=== PATIENT | male | born 1960 | race Caucasian/White ===

== ENCOUNTER 2017-12-19 21:15 | Inpatient (IN) | payer BC ==
[~2017-12-19] VITALS: Ht 185.4 cm; Wt 124.5 kg
[~2017-12-19 21:15] MED LIST: NAPR-56 PO; VAL5T PO
[2017-12-19 23:01] LABS: BASOPHILS # (AUTO) 0.1 X10'3 (0-0.2); BASOPHILS % (AUTO) 0.8 % (0-1); EOSINOPHILS # (AUTO) 0.3 X10'3 (0-0.9); EOSINOPHILS % (AUTO) 2.8 % (0-6); HEMATOCRIT 49.5 % (42.0-52.0); HEMOGLOBIN 16.7 g/dl (14.0-17.9); LYMPHOCYTES # (AUTO) 1.6 X10'3 (1.1-4.8); LYMPHOCYTES % (AUTO) 15.5 % (21-51); MEAN CORPUSCULAR HEMOGLOBIN 29.8 PG (27.0-31.0); MEAN CORPUSCULAR HGB CONC 33.7 % (33.0-36.5); MEAN CORPUSCULAR VOLUME 88.4 FL (78-98); MEAN PLATELET VOLUME 8.9 FL (7.4-10.4); MONOCYTES # (AUTO) 0.5 X10'3 (0-0.9); MONOCYTES % (AUTO) 4.6 % (2-12); NEUTROPHILS # (AUTO) 7.9 X10'3 (1.8-7.7); NEUTROPHILS % (AUTO) 76.3 % (42-75); PLATELET COUNT 258 X10'3 (140-440); RED CELL DISTRIBUTION WIDTH 13.2 % (11.5-14.5); WHITE BLOOD COUNT 10.3 X10'3 (4.5-11.0)
[2017-12-19 23:11] LABS: PARTIAL THROMBOPLASTIN TIME 26 SECONDS (22-32); PROTHROMBIN TIME 10.1 SECONDS (9.0-12.0)
[2017-12-19 23:17] LABS: ALANINE AMINOTRANSFERASE 59 U/L (12-78); ALBUMIN 4.1 G/DL (3.4-5.0); ALBUMIN/GLOBULIN RATIO 1.1 (1.1-1.5); ALKALINE PHOSPHATASE 90 IU/L (46-116); ANION GAP 9 (8-16); ASPARTATE AMINO TRANSFERASE 22 U/L (10-37); BILIRUBIN,TOTAL 0.5 MG/DL (0.1-1.0); BLOOD UREA NITROGEN 12 MG/DL (7-18); BUN/CREATININE RATIO 10.4 (5.4-32.0); CHLORIDE 103 MMOL/L (99-107); CREATININE 1.15 MG/DL (0.60-1.10); GLUCOSE 123 MG/DL (70-104); POTASSIUM 3.9 MMOL/L (3.5-5.1); SODIUM 143 MMOL/L (135-145); TOTAL CARBON DIOXIDE 30.6 MMOL/L (24-32); TOTAL PROTEIN 7.8 G/DL (6.4-8.2); TROPONIN I < 0.04 NG/ML (0.0-0.05); eGFR 66 ML/MIN
[2017-12-20] MEDS ORDERED: lisinopril 10 MG tablet PO ONE (00:15)
[2017-12-20] MEDS ORDERED: aspirin 81mg tab.chew PO ONE (01:15)
[2017-12-20] MEDS ORDERED: NEBI5TAB10 PO (01:45)
[2017-12-20] MEDS ORDERED: PANT40TA4 PO (01:45)
[2017-12-20] MEDS ORDERED: LEVO200T8 PO (01:49)
[2017-12-20] MEDS ORDERED: SULF1TAB48 PO (01:49)
[2017-12-20] MEDS ORDERED: METO-292 PO (01:49)
[2017-12-20] MEDS ORDERED: mag hydrox/Alum hydrox/simeth 30ml oral suspension PO PRN (02:15)
[2017-12-20] MEDS ORDERED: acetaminophen 325mg tablet PO PRN ×2 (02:15)
[2017-12-20] MEDS ORDERED: ondansetron/PF 4mg/2ml inj IV PRN (02:15)
[2017-12-20] MEDS ORDERED: magnesium hydroxide 30ml (MOM) UD suspension PO PRN (02:15)
[2017-12-20 06:30] LABS: CHOL/HDL RATIO 9.5 (0.00-4.99); CHOLESTEROL 286 MG/DL (0-200); HDL CHOLESTEROL 30 MG/DL (35-60); LDL CHOLESTEROL 208 MG/DL (50-100); TRIGLYCERIDES 241 MG/DL (20-135)
[2017-12-20 08:50] VITALS: BP 180/108
[2017-12-20] MEDS: sulfamethoxazole/trimethoprim DS (800/160mg) tablet PO SCH (09:17)
[2017-12-20] MEDS: aspirin 325mg tablet PO SCH (09:19)
[2017-12-20] MEDS: pantoprazole 40mg Tablet.DR PO SCH ×2 (09:19→17:55)
[2017-12-20] MEDS: levoTHYROXINE 100mcg tablet PO SCH (09:19)
[2017-12-20] MEDS ORDERED: LORazepam 2 mg/ml vial IM ONE (11:30)
[2017-12-20 15:48] VITALS: BP 165/91
[2017-12-20 18:00] VITALS: BP 160/98
[2017-12-20 22:00] VITALS: BP 165/87
[2017-12-21 02:00] VITALS: BP 123/77
[2017-12-21 05:26] LABS: BASOPHILS % (AUTO) 0.6 % (0-1); EOSINOPHILS # (AUTO) 0.3 X10'3 (0-0.9); EOSINOPHILS % (AUTO) 3.6 % (0-6); HEMOGLOBIN 15.6 g/dl (14.0-17.9); LYMPHOCYTES # (AUTO) 2.2 X10'3 (1.1-4.8); LYMPHOCYTES % (AUTO) 28.4 % (21-51); MEAN CORPUSCULAR HEMOGLOBIN 29.9 PG (27.0-31.0); MEAN PLATELET VOLUME 8.8 FL (7.4-10.4); MONOCYTES # (AUTO) 0.5 X10'3 (0-0.9); MONOCYTES % (AUTO) 6.5 % (2-12); NEUTROPHILS # (AUTO) 4.7 X10'3 (1.8-7.7); NEUTROPHILS % (AUTO) 60.9 % (42-75); PLATELET COUNT 228 X10'3 (140-440); RED BLOOD COUNT 5.23 X10'6 (4.70-6.10); RED CELL DISTRIBUTION WIDTH 13.5 % (11.5-14.5); WHITE BLOOD COUNT 7.8 X10'3 (4.5-11.0)
[2017-12-21 05:43] LABS: ALBUMIN 3.3 G/DL (3.4-5.0); ANION GAP 9 (8-16); BLOOD UREA NITROGEN 12 MG/DL (7-18); BUN/CREATININE RATIO 11.3 (5.4-32.0); CALCIUM 8.3 MG/DL (8.5-10.1); CHLORIDE 103 MMOL/L (99-107); CREATININE 1.06 MG/DL (0.60-1.10); GLUCOSE 106 MG/DL (70-104); POTASSIUM 3.8 MMOL/L (3.5-5.1); SODIUM 139 MMOL/L (135-145); TOTAL CARBON DIOXIDE 27.2 MMOL/L (24-32); eGFR 73 ML/MIN
[2017-12-21 07:15] VITALS: BP 177/100
[2017-12-21] MEDS: pantoprazole 40mg Tablet.DR PO SCH (07:27)
[2017-12-21] MEDS: levoTHYROXINE 100mcg tablet PO SCH (07:27)
[2017-12-21 08:10] VITALS: BP 159/103
[2017-12-21] MEDS: aspirin 325mg tablet PO SCH (08:10)
[2017-12-21] MEDS: sulfamethoxazole/trimethoprim DS (800/160mg) tablet PO SCH (08:11)
[2017-12-21] MEDS ORDERED: LORazepam 2 mg/ml vial IM ONE (09:35)
[2017-12-21 10:00] VITALS: BP 159/107
[2017-12-21] MEDS ORDERED: lactobacillus rhamnosus 10,000 MMU CELLS/CAPSULE PO SCH (20:00)
== END 2017-12-21 14:30 | disposition home or self-care (01) | DRG 69 ==
LOC: ER 21:16 → ED HOLD 12-20 02:13 → EDBEDREQ 12-20 07:22 → ORTHO 4S 12-20 08:45
PROVIDERS: ADMIT Internal Medicine; ATTEND Internal Medicine
PROC: BW38YZZ Magnetic Resonance Imaging (MRI) of Head using Other Contrast (ICD-10-PCS; principal; 2017-12-21)
DX: G45.9 Transient cerebral ischemic attack, unspecified (principal); C85.90 Non-Hodgkin lymphoma, unspecified, unspecified site; E03.9 Hypothyroidism, unspecified; I10 Essential (primary) hypertension; G93.9 Disorder of brain, unspecified; K21.9 Gastro-esophageal reflux disease without esophagitis; L71.9 Rosacea, unspecified; E66.9 Obesity, unspecified; F41.9 Anxiety disorder, unspecified; Z79.82 Long term (current) use of aspirin; Z68.36 Body mass index [BMI] 36.0-36.9, adult; Z88.5 Allergy status to narcotic agent
CPT/HCPCS: 36415; 70450; 70551; 70552; 71045; 80048; 80053; 80061; 84443; 84484; 85025; 85610; 85730; 87070; 93005; 93306; 93880; 97116; 97161; 97530; 99285; J2060

== ENCOUNTER 2019-12-07 20:46 | Emergency (ER) | payer BC ==
[~2019-12-07] VITALS: Ht 185.4 cm; Wt 120.0 kg
[~2019-12-07 20:46] MED LIST changes: +LEVO200T8 PO; +METO-292 PO; -NAPR-56 PO; +NEBI5TAB10 PO; +PANT40TA4 PO; +SULF1TAB48 PO; -VAL5T PO
[2019-12-07] MEDS ORDERED: AMOX-422 PO (21:04)
[2019-12-07] MEDS ORDERED: amox tr/potassium clavulanate 875/125mg TAB PO ONE (21:05)
--- NOTE | 2019-12-07 21:39 | NUR ---
BP 192/100 AT TIME OF DC. HEATH RIOS, AWARE AND OK WITH DC. PT HAS HAD RECENT CARDIAC WORKUP AND REPORTS "IM WORKING ON MY BP CURRENTLY" WITH PCP.
[2019-12-07 21:40] VITALS: BP 192/100
== END 2019-12-07 21:41 | disposition home or self-care (01) ==
LOC: ER 20:46
DX: H60.92 Unspecified otitis externa, left ear (principal); I10 Essential (primary) hypertension; Z88.5 Allergy status to narcotic agent; Z88.8 Allergy status to other drugs, medicaments and biological substances; Z79.899 Other long term (current) drug therapy
CPT/HCPCS: 99283

== ENCOUNTER 2023-12-01 14:03 | Inpatient (IN) | payer BC ==
[~2023-12-01] VITALS: Ht 182.9 cm; Wt 140.9 kg
[~2023-12-01 14:03] MED LIST changes: -PANT40TA4 PO; +PANT40TA54 PO
[2023-12-01 14:41] LABS: BASOPHILS # (AUTO) 0.1 X10'3 (0-0.2); BASOPHILS % (AUTO) 0.9 % (0-1); EOSINOPHILS # (AUTO) 0.2 X10'3 (0-0.9); EOSINOPHILS % (AUTO) 1.5 % (0-6); HEMATOCRIT 48.3 % (42.0-52.0); LYMPHOCYTES # (AUTO) 3.3 X10'3 (1.1-4.8); LYMPHOCYTES % (AUTO) 28.5 % (21-51); MEAN CORPUSCULAR HEMOGLOBIN 28.7 PG (27.0-31.0); MEAN CORPUSCULAR VOLUME 86.9 FL (78-98); MEAN PLATELET VOLUME 9.3 FL (7.4-10.4); MONOCYTES # (AUTO) 0.7 X10'3 (0-0.9); MONOCYTES % (AUTO) 6.1 % (2-12); NEUTROPHILS # (AUTO) 7.2 X10'3 (1.8-7.7); PLATELET COUNT 250 X10'3 (140-440); RED BLOOD COUNT 5.56 X10'6 (4.70-6.10); RED CELL DISTRIBUTION WIDTH 14.6 % (11.5-14.5); WHITE BLOOD COUNT 11.4 X10'3 (4.5-11.0)
[2023-12-01] MEDS: normal saline 1000ml 1,000 ML IV ONE ×2 (14:46→15:32)
[2023-12-01] MEDS: ondansetron/PF 4mg/2ml inj IV ONE ×2 (14:46→20:22)
[2023-12-01 15:09] LABS: ALANINE AMINOTRANSFERASE 77 U/L (12-78); ALBUMIN 3.8 G/DL (3.4-5.0); ALKALINE PHOSPHATASE 72 IU/L (46-116); ANION GAP 13 (8-16); ASPARTATE AMINO TRANSFERASE 27 U/L (10-37); BILIRUBIN,TOTAL 0.7 MG/DL (0.1-1.0); BLOOD UREA NITROGEN 13 MG/DL (7-18); BUN/CREATININE RATIO 11.4 (10.0-20.0); CHLORIDE 100 MMOL/L (99-107); CREATININE 1.14 MG/DL (0.60-1.10); GLUCOSE 137 MG/DL (70-104); POTASSIUM 3.2 MMOL/L (3.5-5.1); SODIUM 138 MMOL/L (135-145); TOTAL CARBON DIOXIDE 24.9 MMOL/L (24-32); TOTAL PROTEIN 7.8 G/DL (6.4-8.2); eCRCL 76 ML/MIN; eGFR 66 ML/MIN
[2023-12-01 15:11] LABS: ETHANOL < 10 MG/DL (<10); MAGNESIUM 2.1 MG/DL (1.5-2.4)
[2023-12-01] MEDS: hydrALAZINE 20mg/ml inj. IV ONE ×3 (15:32→22:34)
[2023-12-01] MEDS: metoclopramide 5 mg/ml inj IV ONE (15:33)
[2023-12-01 16:08] LABS: PRO BRAIN NATRIURETIC PEPTIDE 272 PG/ML (0-125)
[2023-12-01] MEDS: meclizine 12.5mg tablet PO ONE ×2 (16:26→17:38)
[2023-12-01] MEDS: potassium Cl 20 mEq SR tablet PO STA (16:27)
[2023-12-01 17:09] LABS: BILIRUBIN,URINE NEGATIVE (Neg); CLARITY,URINE CLEAR (Clear); COLOR,URINE YELLOW (Yellow); GLUCOSE, URINE NEGATIVE (Neg); KETONES,URINE 15 mg/dl (Neg); LEUKOCYTE ESTERASE ,URINE NEGATIVE (Neg); NITRITES, URINE NEGATIVE (Neg); OCCULT BLOOD,URINE NEGATIVE (Neg); PH,URINE 7.5 (4.8-8.0); PROTEIN,URINE 100 mg/dl (Neg); UROBILINOGEN,URINE 0.2 E.U/dL (0.2-1.0)
[2023-12-01 17:11] LABS: URINE AMPHETAMINE SCREEN NEGATIVE (Neg); URINE BARBITUATE SCREEN NEGATIVE (Neg); URINE BENZODIAZEPINES SCREEN NEGATIVE (Neg); URINE CANNABINOID SCREEN NEGATIVE (Neg); URINE COCAINE SCREEN NEGATIVE (Neg); URINE METHADONE SCREEN NEGATIVE (Neg); URINE OPIATE SCREEN NEGATIVE (Neg); URINE PHENCYCLIDINE SCREEN NEGATIVE (Neg)
[2023-12-01 17:22] LABS: BACTERIA,URINE NONE SEEN /HPF (Neg); MUCUS STRANDS FEW /LPF (Neg); RBC,URINE 0-2 /HPF (0-2); SQUAMOUS EPITHELIAL CELL,UR FEW /LPF (FEW); UA COLLECTION TYPE CLN CATCH MIDSTREAM; WBC,URINE 0-4 /HPF (0-4)
[2023-12-01] MEDS: cloNIDine 0.1 mg tablet PO ONE (17:38)
[2023-12-01] MEDS: normal saline 1000ML IV soln IVB ONE (17:43)
[2023-12-02] VITALS (7 sets, daily range): BP systolic 170–194; BP diastolic 83–101; PULSE 55–69; RESP 18–20; TEMP 97.5–98.4; O2SAT 95–98
[2023-12-02] MEDS ORDERED: acetaminophen 325mg tablet PO PRN ×2 (00:25)
[2023-12-02] MEDS ORDERED: morphine 2 MG/ML inj. syringe IV PRN (00:25)
[2023-12-02] MEDS ORDERED: magnesium hydroxide 30ml (MOM) UD suspension PO PRN (00:25)
[2023-12-02] MEDS ORDERED: mag hydrox/Alum hydrox/simeth 30ml oral suspension PO PRN (00:25)
[2023-12-02] MEDS ORDERED: HYDROcodone/acetaminophen 5mg/325mg tablet PO PRN (00:25)
[2023-12-02 01:32] LABS: HEMOGLOBIN A1C 6.4 % (4.5-6.2)
[2023-12-02] MEDS: normal saline 1000ml 1,000 ML IV SCH (03:39)
[2023-12-02] MEDS: aspirin 81mg, enteric-coated 1 TAB TABLET.DR PO SCH (08:00)
[2023-12-02] MEDS: docusate sod 100mg capsule PO SCH (08:00)
[2023-12-02 10:44] LABS: BASOPHILS # (AUTO) 0.1 X10'3 (0-0.2); BASOPHILS % (AUTO) 0.4 % (0-1); EOSINOPHILS % (AUTO) 0.2 % (0-6); HEMATOCRIT 45.5 % (42.0-52.0); LYMPHOCYTES # (AUTO) 1.6 X10'3 (1.1-4.8); LYMPHOCYTES % (AUTO) 9.6 % (21-51); MEAN CORPUSCULAR HEMOGLOBIN 28.9 PG (27.0-31.0); MEAN CORPUSCULAR VOLUME 87.6 FL (78-98); MEAN PLATELET VOLUME 9.2 FL (7.4-10.4); MONOCYTES # (AUTO) 0.9 X10'3 (0-0.9); NEUTROPHILS # (AUTO) 14.3 X10'3 (1.8-7.7); NEUTROPHILS % (AUTO) 84.8 % (42-75); PLATELET COUNT 232 X10'3 (140-440); RED BLOOD COUNT 5.19 X10'6 (4.70-6.10); RED CELL DISTRIBUTION WIDTH 14.6 % (11.5-14.5); WHITE BLOOD COUNT 16.9 X10'3 (4.5-11.0)
[2023-12-02] MEDS ORDERED: ASPI-611 PO (11:02)
[2023-12-02] MEDS ORDERED: FURO-150 PO (11:02)
[2023-12-02 11:19] LABS: ALANINE AMINOTRANSFERASE 67 U/L (12-78); ALBUMIN 3.4 G/DL (3.4-5.0); ALBUMIN/GLOBULIN RATIO 0.9 (1.1-1.5); ALKALINE PHOSPHATASE 65 IU/L (46-116); ANION GAP 14 (8-16); ASPARTATE AMINO TRANSFERASE 26 U/L (10-37); BILIRUBIN,TOTAL 0.7 MG/DL (0.1-1.0); BLOOD UREA NITROGEN 14 MG/DL (7-18); BUN/CREATININE RATIO 11.5 (10.0-20.0); CALCIUM 8.4 MG/DL (8.5-10.1); CHLORIDE 102 MMOL/L (99-107); CHOL/HDL RATIO 7.3 (0.00-4.99); CHOLESTEROL 262 MG/DL (0-200); CREATININE 1.22 MG/DL (0.60-1.10); GLUCOSE 145 MG/DL (70-104); HDL CHOLESTEROL 36 MG/DL (35-60); LDL CHOLESTEROL 199 MG/DL (50-100); POTASSIUM 3.6 MMOL/L (3.5-5.1); SODIUM 138 MMOL/L (135-145); THYROID STIMULATING HORMONE 3.08 ulU/ml (0.34-4.50); TOTAL CARBON DIOXIDE 22.2 MMOL/L (24-32); TOTAL PROTEIN 7.3 G/DL (6.4-8.2); TRIGLYCERIDES 120 MG/DL (20-135); eCRCL 71 ML/MIN; eGFR 61 ML/MIN
[2023-12-02] MEDS: ondansetron/PF 4mg/2ml inj IV PRN (17:03)
[2023-12-02] MEDS: proCHLORperazine 10 MG/2 ml inj IV PRN (17:07)
[2023-12-02] MEDS: meclizine 12.5mg tablet PO PRN (19:33)
[2023-12-03 02:00] VITALS: BP 182/91; PULSE 49; RESP 15; TEMP 98; O2SAT 99
[2023-12-03 06:00] VITALS: BP 199/99; PULSE 54; RESP 19; TEMP 97.8; O2SAT 99
[2023-12-03 07:25] LABS: BASOPHILS # (AUTO) 0.1 X10'3 (0-0.2); BASOPHILS % (AUTO) 0.5 % (0-1); EOSINOPHILS # (AUTO) 0.1 X10'3 (0-0.9); EOSINOPHILS % (AUTO) 0.9 % (0-6); HEMATOCRIT 46.6 % (42.0-52.0); HEMOGLOBIN 15.4 g/dl (14.0-17.9); LYMPHOCYTES % (AUTO) 18.1 % (21-51); MEAN CORPUSCULAR HGB CONC 33.1 g/dL (33.0-36.5); MEAN CORPUSCULAR VOLUME 87.8 FL (78-98); MEAN PLATELET VOLUME 9.7 FL (7.4-10.4); MONOCYTES # (AUTO) 0.6 X10'3 (0-0.9); MONOCYTES % (AUTO) 5.3 % (2-12); NEUTROPHILS # (AUTO) 8.1 X10'3 (1.8-7.7); NEUTROPHILS % (AUTO) 75.2 % (42-75); PLATELET COUNT 201 X10'3 (140-440); RED BLOOD COUNT 5.31 X10'6 (4.70-6.10); RED CELL DISTRIBUTION WIDTH 14.8 % (11.5-14.5); WHITE BLOOD COUNT 10.8 X10'3 (4.5-11.0)
[2023-12-03 07:42] LABS: ALBUMIN 3.2 G/DL (3.4-5.0); ANION GAP 8 (8-16); BLOOD UREA NITROGEN 14 MG/DL (7-18); BUN/CREATININE RATIO 16.5 (10.0-20.0); CHLORIDE 103 MMOL/L (99-107); CHOL/HDL RATIO 6.9 (0.00-4.99); CHOLESTEROL 248 MG/DL (0-200); CREATININE 0.85 MG/DL (0.60-1.10); GLUCOSE 99 MG/DL (70-104); HDL CHOLESTEROL 36 MG/DL (35-60); LDL CHOLESTEROL 198 MG/DL (50-100); POTASSIUM 3.7 MMOL/L (3.5-5.1); SODIUM 136 MMOL/L (135-145); TOTAL CARBON DIOXIDE 24.9 MMOL/L (24-32); TRIGLYCERIDES 115 MG/DL (20-135); eCRCL 101 ML/MIN; eGFR > 90 ML/MIN
[2023-12-03] MEDS: atorvastatin 20mg tablet PO SCH (08:20)
[2023-12-03 15:00] VITALS: BP 211/100; PULSE 64; RESP 18; TEMP 97.9; O2SAT 98
[2023-12-03] MEDS: LORazepam 2 mg/ml vial IV PRN (15:50)
[2023-12-03 18:00] VITALS: BP 217/100; PULSE 56; RESP 16; TEMP 98; O2SAT 98
[2023-12-03 20:00] VITALS: RESP 16; O2SAT 98
[2023-12-03] MEDS ORDERED: ATOR-2 PO (20:02)
[2023-12-03 22:00] VITALS: BP 170/65; PULSE 54; RESP 16; TEMP 97.9; O2SAT 97
[2023-12-04] VITALS (12 sets, daily range): BP systolic 130–235; BP diastolic 65–119; PULSE 53–63; RESP 14–22; TEMP 97.5–98.1; O2SAT 96–98
[2023-12-04 06:21] LABS: BASOPHILS # (AUTO) 0.1 X10'3 (0-0.2); BASOPHILS % (AUTO) 1.1 % (0-1); EOSINOPHILS # (AUTO) 0.3 X10'3 (0-0.9); EOSINOPHILS % (AUTO) 3.6 % (0-6); HEMATOCRIT 45.3 % (42.0-52.0); HEMOGLOBIN 15.1 g/dl (14.0-17.9); LYMPHOCYTES # (AUTO) 2.2 X10'3 (1.1-4.8); LYMPHOCYTES % (AUTO) 24.6 % (21-51); MEAN CORPUSCULAR HEMOGLOBIN 29.1 PG (27.0-31.0); MEAN CORPUSCULAR HGB CONC 33.3 g/dL (33.0-36.5); MEAN CORPUSCULAR VOLUME 87.4 FL (78-98); MEAN PLATELET VOLUME 9.1 FL (7.4-10.4); MONOCYTES # (AUTO) 0.7 X10'3 (0-0.9); MONOCYTES % (AUTO) 7.3 % (2-12); NEUTROPHILS # (AUTO) 5.7 X10'3 (1.8-7.7); NEUTROPHILS % (AUTO) 63.4 % (42-75); PLATELET COUNT 202 X10'3 (140-440); RED BLOOD COUNT 5.18 X10'6 (4.70-6.10); RED CELL DISTRIBUTION WIDTH 14.5 % (11.5-14.5)
[2023-12-04 06:40] LABS: ALBUMIN 3.1 G/DL (3.4-5.0); ANION GAP 10 (8-16); BLOOD UREA NITROGEN 16 MG/DL (7-18); BUN/CREATININE RATIO 15.4 (10.0-20.0); CALCIUM 8.3 MG/DL (8.5-10.1); CHLORIDE 106 MMOL/L (99-107); CREATININE 1.04 MG/DL (0.60-1.10); GLUCOSE 94 MG/DL (70-104); POTASSIUM 3.8 MMOL/L (3.5-5.1); SODIUM 141 MMOL/L (135-145); TOTAL CARBON DIOXIDE 24.8 MMOL/L (24-32); eCRCL 83 ML/MIN; eGFR 73 ML/MIN
[2023-12-04] MEDS: furosemide 20MG tablet PO ONE (16:35)
[2023-12-04] MEDS: NIFEdipine XL 30mg tablet PO ONE (16:35)
[2023-12-04] MEDS ORDERED: FURO40TA4 PO (17:55)
[2023-12-04] MEDS: cloNIDine 0.1 mg tablet PO STA (18:06)
[2023-12-04] MEDS: pantoprazole 40mg Tablet.DR PO SCH (19:11)
[2023-12-04] MEDS: hydrALAZINE 20mg/ml inj. IV PRN (19:20)
[2023-12-04] MEDS: metoclopramide 10mg tablet PO SCH (20:24)
[2023-12-05 02:00] VITALS: BP 144/77; PULSE 61; RESP 18; TEMP 97.4; O2SAT 96
[2023-12-05 04:00] VITALS: BP 155/79; PULSE 49
[2023-12-05 06:00] VITALS: BP 127/59; PULSE 54; RESP 18; TEMP 97.2; O2SAT 97
[2023-12-05 06:06] LABS: BASOPHILS # (AUTO) 0.1 X10'3 (0-0.2); EOSINOPHILS # (AUTO) 0.1 X10'3 (0-0.9); MONOCYTES # (AUTO) 0.6 X10'3 (0-0.9); MONOCYTES % (AUTO) 5.5 % (2-12)
[2023-12-05 06:08] LABS: BASOPHILS % (AUTO) 0.7 % (0-1); HEMOGLOBIN 16.1 g/dl (14.0-17.9); LYMPHOCYTES # (AUTO) 1.6 X10'3 (1.1-4.8); LYMPHOCYTES % (AUTO) 15.5 % (21-51); MEAN CORPUSCULAR HEMOGLOBIN 29.7 PG (27.0-31.0); MEAN CORPUSCULAR HGB CONC 34.2 g/dL (33.0-36.5); MEAN PLATELET VOLUME 9.4 FL (7.4-10.4); NEUTROPHILS # (AUTO) 7.8 X10'3 (1.8-7.7); NEUTROPHILS % (AUTO) 77.3 % (42-75); PLATELET COUNT 229 X10'3 (140-440); RED BLOOD COUNT 5.41 X10'6 (4.70-6.10); RED CELL DISTRIBUTION WIDTH 14.8 % (11.5-14.5); WHITE BLOOD COUNT 10.1 X10'3 (4.5-11.0)
[2023-12-05 06:09] LABS: ALBUMIN 3.2 G/DL (3.4-5.0); ANION GAP 5 (8-16); BLOOD UREA NITROGEN 15 MG/DL (7-18); CALCIUM 8.6 MG/DL (8.5-10.1); CHLORIDE 100 MMOL/L (99-107); CREATININE 0.94 MG/DL (0.60-1.10); GLUCOSE 119 MG/DL (70-104); POTASSIUM 3.4 MMOL/L (3.5-5.1); SODIUM 134 MMOL/L (135-145); TOTAL CARBON DIOXIDE 28.7 MMOL/L (24-32); eCRCL 92 ML/MIN; eGFR 82 ML/MIN
[2023-12-05] MEDS: furosemide 40mg tablet PO SCH (07:59)
[2023-12-05] MEDS: levoTHYROXINE 100mcg tablet PO SCH (07:59)
[2023-12-05 08:00] VITALS: RESP 18; O2SAT 94
[2023-12-05] MEDS: metoprolol tartrate 25mg tablet PO SCH (08:00)
[2023-12-05] MEDS ORDERED: non-formulary drug (Aspirin (Aspir 81) 1 TAB) PO SCH (08:00)
[2023-12-05] MEDS ORDERED: furosemide 20MG tablet PO SCH (08:00)
[2023-12-05] MEDS ORDERED: MECL-226 PO (10:17)
[2023-12-05] MEDS ORDERED: HYDR50TA46 PO (10:23)
[2023-12-05 11:00] VITALS: BP 140/65; PULSE 65; RESP 16; O2SAT 98
== END 2023-12-05 11:30 | disposition home or self-care (01) | DRG 305 ==
LOC: ER 14:03 → ED HOLD 12-02 00:29 → PCU 3S 12-02 08:14
PROVIDERS: ADMIT Internal Medicine; ATTEND Family Medicine
DX: I16.1 Hypertensive emergency (principal); Z68.41 Body mass index [BMI] 40.0-44.9, adult; I10 Essential (primary) hypertension; I65.22 Occlusion and stenosis of left carotid artery; E78.5 Hyperlipidemia, unspecified; D72.829 Elevated white blood cell count, unspecified; E66.9 Obesity, unspecified; K04.7 Periapical abscess without sinus; Z79.82 Long term (current) use of aspirin; Z88.5 Allergy status to narcotic agent; Z79.899 Other long term (current) drug therapy
CPT/HCPCS: 36415; 70450; 70544; 70553; 71045; 80048; 80053; 80061; 80305; 80320; 81001; 83036; 83735; 83880; 84443; 84484; 85025; 87081; 93005; 93306; 93880; 96374; 96375; 96376; 97161; 97530; 99285; G0378; J0360; J0780; J2060; J2405; J2765; J7030; J8597